=== PATIENT | female | born 1960 | race Caucasian/White ===

== ENCOUNTER 2022-11-10 09:35 | Emergency (ER) | payer BC, SELFPAY ==
[2022-11-10] VITALS (15 sets, daily range): BP systolic 130–168; BP diastolic 66–149; PULSE 69–92; RESP 16–27; TEMP 36.1–36.8; O2SAT 92–96
--- NOTE | ~2022-11-10 | CT_ITS ---
. EXAMINATION: CT chest abdomen pelvis w con DATE: 11/10/2022 14:56 INDICATION: Left upper quadrant abdominal pain and swelling. TECHNIQUE: Computed tomography (CT) of the chest, abdomen, and pelvis was performed with 100 mL Omnip aque 350 intravenous contrast. Automated exposure control and iterative reconstruction technique were employed. The dose-length product was 1539.90 mGy-cm. COMPARISON: None FINDINGS: CHEST CT: The lungs demonstrate smooth septal thickening and peripheral groundglass opacities, consistent mild pulmonary edema. A calcified right lung nodule and calcified right hilar lymph nodes are consistent w ith old granulomatous disease. No pleural effusion. The heart size is normal. There are coronary remedios ry calcifications. No pericardial effusion. There is a moderate-sized sliding hiatal hernia. There is a 9.6 x 3.6 cm expansile nonaggressive lytic lesion of right seventh rib. There is mild thoracic spo ndylosis. ABDOMEN/PELVIS CT: Calcifications in the liver and spleen are consistent with old granulomatous disease. The gallbladder , pancreas, adrenal glands, and kidneys are normal. There is a 2.9 cm fibroid in the uterus. There ar e no dilated loops of bowel. The appendix is normal. There is calcified atherosclerosis of the aorta and many of the other arteries. There are no pathologically enlarged lymph nodes. There is no free in traperitoneal fluid. There is mild lumbar spondylosis. IMPRESSION: 1. Moderate-sized sliding hiatal hernia. 2. 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 3. Uterine fibroid. Reviewed, dictated and finalized at location A. IMPRESSION: 1. Moderate-sized sliding hiatal hernia. 2. Nonaggressive expansile lytic lesion of right seventh rib, likely a benign l esion such as fibrous dysplasia. 3. Uterine fibroid.
--- NOTE | 2022-11-10 12:57 | ED.GENADULT ---
HPI - General Adult General Chief complaint: Unspecified Stated complaint: swelling under ribs, making it hard to breath Time Seen by Provider: 11/10/22 11:27 History of Present Illness HPI narrative: 60-year-old female presented to the emergency department for evaluation of left upper quadrant swelling and pain. Patient reports over the last few months when she sits up she has left upper quadrant pain and swelling that does seem to affect her breathing. Patient reports when she is laying down flat or leaning back that she has no swelling and has no difficulty breathing. Patient does have COPD. Patient denies any current shortness of breath. Patient has no prior abdominal surgical history and denies any prior history of hernias. Related Data Allergies Allergy/AdvReac Type Severity Reaction Status Date / Time sertraline Allergy Unknown PANIC Unverified 04/13/19 16:26 ATTACK Review of Systems Review of Systems: All systems reviewed & are unremarkable except as noted in HPI and below PMFSH Family History Family History (System 04/13/19 @ 16:26 by Genny Rodriguez) Father Family history of malignant neoplasm, Onset Age: 41 Social History Social History (System 04/13/19 @ 16:26 by Genny Rodriguez) Smoking status: Current every day smoker Exam Narrative: APPEARANCE: Well appearing, no pain, no distress, well-nourished. HEAD: normocephalic, atraumatic. EYES: PERRLA/EOMI, conjunctivae clear. NOSE: Normal no drainage EARS:TMS clear with good light reflex. THROAT: Pharynx clear, no exudate. NECK: Supple. No adenopathy, no masses. RESPIRATORY: Airway patent, respirations nonlabored. Clear to auscultation bilaterally, no rales, rhonchi, wheezing. CARDIOVASCULAR: Regular rate and rhythm without murmurs rubs or gallops. ABDOMINAL: Soft, nontender, nondistended, normal bowel sounds MUSCULOSKELETAL: Moves all extremities. Strength/ROM intact, No edema, No calf tenderness. NEURO: Alert. Cranial nerves II through XII intact. Grossly intact SKIN: Warm, dry. Normal Color Course Course Emergency Course: 62-year-old female presented the ED for evaluation of left upper quadrant pain and swelling. Patient was afebrile but does have a leukocytosis of 11.0. Patient's hemoglobin is stable at 14.9. Patient has no significant electrolyte abnormalities. CT scan showed no explanatory for the patient's symptoms. Patient does have a hiatal hernia. Patient was encouraged of close follow-up with her primary care physician for additional outpatient cardiac testing. All question concerns were addressed. Patient was comfortable with the plan for discharge and close follow-up. Vital Signs Vital signs: Vital Signs Temperature 97.0 F L 11/10/22 09:42 Pulse Rate 92 11/10/22 09:42 Respiratory Rate 18 11/10/22 09:42 Blood Pressure 155/95 H 11/10/22 09:42 Pulse Oximetry 94 11/10/22 09:42 Oxygen Delivery Room Air 11/10/22 09:42 Temperature 98.3 F 11/10/22 15:15 Pulse Rate 82 11/10/22 15:15 Respiratory Rate 18 11/10/22 15:15 Blood Pressure 132/78 11/10/22 15:15 Pulse Oximetry 96 11/10/22 15:15 Oxygen Delivery Room Air 11/10/22 09:42 Medical Decision Making Differential Diagnosis Differential Diagnosis: Lipoma, pneumonia, splenomegaly, colitis Vital Signs Vital Signs: Vital Signs Temperature 97.0 F L 11/10/22 09:42 Pulse Rate 92 11/10/22 09:42 Respiratory Rate 18 11/10/22 09:42 Blood Pressure 155/95 H 11/10/22 09:42 Pulse Oximetry 94 11/10/22 09:42 Oxygen Delivery Room Air 11/10/22 09:42 Temperature 98.3 F 11/10/22 15:15 Pulse Rate 82 11/10/22 15:15 Respiratory Rate 18 11/10/22 15:15 Blood Pressure 132/78 11/10/22 15:15 Pulse Oximetry 96 11/10/22 15:15 Oxygen Delivery Room Air 11/10/22 09:42 Lab Data Lab results reviewed: Yes I reviewed the patient's lab results. 11/10/22 14:00 11/10/22 14:00
[2022-11-10 14:13] LABS: Basophils Absolute Auto 0.1 K/mm3 (0.0-0.1); Basophils Percent Auto 0.5 % (0.2-1.2); Eosinophils Absolute Auto 0.2 K/mm3 (0-0.3); Eosinophils Percent Auto 1.9 % (0-4.4); Hematocrit 46.9 % (37.0-47.0); Hemoglobin 14.9 g/dL (12.0-15.0); Immature Granulocyte Absolute 0.05 K/mm3 (0.00-0.031); Immature Granulocyte Percent A 0.5 % (0-0.5); Lymphocytes Absolute Auto 2.83 K/mm3 (0.9-3.2); Lymphocytes Percent Auto 25.7 % (18.3-44.2); Mean Corpuscular HGB Conc 31.8 g/dl (32-36); Mean Corpuscular Hemoglobin 28.3 pg (26-34); Mean Platelet Volume 10.4 fl (7.4-10.4); Monocytes Absolute Auto 0.7 K/mm3 (0.1-0.6); Monocytes Percent Auto 6.7 % (2.6-8.5); Neutrophils Absolute Auto 7.2 K/mm3 (1.3-6.7); Neutrophils Percent Auto 64.7 % (45.5-73.1); Platelet Count Result 331 k/mm3 (150-375); Red Blood Count 5.27 M/mm3 (4.2-5.4); Red Cell Distribution Width 13.9 % (11.5-14.5)
[2022-11-10 14:21] LABS: INR 0.9; Prothrombin Time 11.9 Seconds (11.1-14.7)
[2022-11-10 14:23] LABS: Partial Thromboplastin Time 28.5 SECONDS (22.3-36.8)
[2022-11-10 14:28] LABS: Alanine Aminotransferase 31 U/L (6-35); Albumin Level 3.8 g/dL (3.5-5.1); Alkaline Phosphatase 155 U/L (38-126); Anion Gap 5 mmol/L (8-16); Aspartate Amino Transferase 24 U/L (14-36); Bilirubin,Total 0.4 mg/dL (0.2-1.3); Blood Urea Nitrogen 11 mg/dL (7-17); Calcium 8.2 mg/dL (8.4-10.2); Carbon Dioxide 29 mmol/L (22-30); Chloride 106 mmol/L (98-107); Estimated CRCL calculation 74 ml/min; Estimated Glomerular Filt Rate > 60; Glucose 85 mg/dL (65-110); Potassium 3.5 mmol/L (3.4-5.0); Sodium 140 mmol/L (137-145)
== END 2022-11-10 15:15 | disposition home or self-care (01) ==
PROVIDERS: Emergency Provider Emergency Medicine; PCP Internal Medicine
DX: R10.12 Left upper quadrant pain (principal); F17.200 Nicotine dependence, unspecified, uncomplicated
CPT/HCPCS: 36415; 71260; 74177; 80053; 85025; 85610; 85730; 99284; Q9967